=== PATIENT | female | born 1950 | race Hispanic/Latino ===

== ENCOUNTER 2023-08-30 15:08 | Outpatient (CLI) | payer MEDICARE | END 2023-08-30 15:09 | disposition home or self-care (01) | LOC: BICULT 15:08 | PROVIDERS: ATTEND Internal Medicine Nephrology | DX: N18.30 Chronic kidney disease, stage 3 unspecified (principal); N28.1 Cyst of kidney, acquired | CPT/HCPCS: 76770 ==

== ENCOUNTER 2023-12-20 03:03 | Emergency (ER) | payer MEDICARE ==
[2023-12-20] MEDS ORDERED: Ketorolac Tromethamine 30 MG (1 mL) VIAL ONE (03:37)
[2023-12-20] MEDS ORDERED: Ondansetron ODT 4 MG TAB ONE (03:37)
[2023-12-20 04:48] LABS: Bilirubin Negative (Negative); Blood, Urine Moderate (Negative); Glucose, Urine (Dipstick) >=1000 mg/dL (Negative); Ketone, Urine Negative (Negative); Leukocyte Trace (Negative); Nitrite Positive (Negative); Protein, Urine (Dipstick) Trace mg/dL (Neg-Trace); Urobilinogen 0.2 mg/dL (Less than 2)
[2023-12-20 04:56] LABS: Bacteria/HPF 4+ HPF (None Seen); CAUTI Indications for Culture Fever or rigors; RBC/HPF 0-3 HPF (0-3); Squamous Epithelial 0-3 HPF (0-3); WBC/HPF 21-50 HPF (0-3)
[2023-12-20 04:57] LABS: Clarity Clear (Clear)
[2023-12-20 04:59] LABS: Urine Culture Reflex Yes Yes
[2023-12-20 05:42] LABS: Specific Gravity, Urine 1.018 (1.002-1.036)
[2023-12-20 06:11] LABS: Influenza A by NAA Not Detected (NotDetected); Influenza B by NAA Not Detected (NotDetected); SARS-CoV-2 NAA Rapid Test Not Detected (NotDetected)
== END 2023-12-20 07:03 | disposition home or self-care (01) ==
LOC: ERS 03:03
DX: N39.0 Urinary tract infection, site not specified (principal); I12.9 Hypertensive chronic kidney disease with stage 1 through stage 4 chronic kidney disease, or unspecified chronic kidney disease; E11.22 Type 2 diabetes mellitus with diabetic chronic kidney disease; N18.9 Chronic kidney disease, unspecified
CPT/HCPCS: 0240U; 71045; 81001; 82962; 87086; 36416; 87077; 96372; J1885; Q0162

== ENCOUNTER 2024-03-06 16:00 | Outpatient (CLI) | payer MEDICARE | END 2024-03-06 16:01 | disposition home or self-care (01) | LOC: SLEEPLAB 16:00 | PROVIDERS: ATTEND Internal Medicine Critical Care Medicine | DX: G47.33 Obstructive sleep apnea (adult) (pediatric) (principal); R06.83 Snoring; I10 Essential (primary) hypertension | CPT/HCPCS: 95800 ==

== ENCOUNTER 2024-04-06 12:18 | Outpatient (CLI) | payer MEDICARE | END 2024-04-06 12:19 | disposition home or self-care (01) | LOC: BICRAD 12:18 | PROVIDERS: ATTEND Family Medicine | DX: M47.26 Other spondylosis with radiculopathy, lumbar region (principal); M46.1 Sacroiliitis, not elsewhere classified | CPT/HCPCS: 72100 ==

== ENCOUNTER 2024-04-18 16:03 | Outpatient (CLI) | payer MEDICARE | END 2024-04-18 16:04 | disposition home or self-care (01) | LOC: BICULT 16:03 | PROVIDERS: ATTEND Family Medicine | DX: R10.30 Lower abdominal pain, unspecified (principal) | CPT/HCPCS: 76856; 93976 ==

== ENCOUNTER 2024-09-17 07:47 | Outpatient (CLI) | payer MEDICARE | END 2024-09-17 07:48 | disposition home or self-care (01) | LOC: ULT 07:47 | PROVIDERS: ATTEND Internal Medicine Nephrology | DX: N18.30 Chronic kidney disease, stage 3 unspecified (principal); N28.9 Disorder of kidney and ureter, unspecified | CPT/HCPCS: 76770; 93975 ==

== ENCOUNTER 2024-09-27 07:50 | Outpatient (CLI) | payer MEDICARE | END 2024-09-27 07:51 | disposition home or self-care (01) | LOC: CT 07:50 | PROVIDERS: ATTEND Family Medicine | DX: R10.10 Upper abdominal pain, unspecified (principal); D50.9 Iron deficiency anemia, unspecified; I70.90 Unspecified atherosclerosis | CPT/HCPCS: 74177 ==